=== PATIENT | female | born 1985 | race Caucasian/White ===

== ENCOUNTER 2020-08-21 01:10 | Inpatient (IN) | payer OTHER ==
[2020-08-21 03:56] LABS: BASO % 0.5 % (0-2.0); EOS % 0.3 % (0-4.5); HEMATOCRIT 35.6 % (32.4-45.2); HEMOGLOBIN 11.3 GM/dL (10.7-15.3); LYMPH % 18.7 % (8-40); MCH 27.4 pg (25.7-33.7); MCHC 31.9 g/dl (32.0-36.0); MEAN PLT VOLUME 10.8 fl (7.5-11.1); MONO % 7.4 % (3.8-10.2); NEUT % 73.1 % (42.8-82.8); PLATELET COUNT 163 K/MM3 (134-434); RBC 4.14 M/mm3 (3.60-5.2); RDW 15.7 % (11.6-15.6); WHITE BLOOD COUNT 8.1 K/mm3 (4.0-10.0)
--- NOTE | 2020-08-21 04:03 | HP ---
Past Medical History - Primary Care Physician PCP:: Jose Francisco Quintero E - Admission Chief Complaint: ctx and PROM History of Present Illness: Uneventful . Second baby, scheduled for repeat c/section in2 weeks. Admitted w ROM and contractions. Clear AF. In pain. Wants c/section. History Source: Patient, Caregiver Limitations to Obtaining History: No Limitations - Past Medical History REGULATORY SPECIALIST: No: Alzheimer's, CVA, Dementia, Migraine, Multiple Sclerosis, Peripheral Neuropathy, Parkinson's, Seizure, Syncope, TIA, Vertigo, Other Cardiovascular: No: AFIB, Aneurysm, Aortic Insufficiency, Aortic Stenosis, CAD, CHF, Deep Vein Thrombosis, HTN, Hyperlipdemia, ND, Mitral Insufficiency, Mitral Stenosis, Murmur, Pulmonary Hypertension, Other Pulmonary: No: Asthma, Bronchitis, Cancer, COPD, O2 Dependent, Pneumonia, Previously Intubated, Pulmonary Embolus, Pulmonary Fibrosis, Sleep Apnea, Other Gastrointestinal: No: Ascites, Cancer, Constipation, Crohn's Disease, Diverticulitis, Diverticulosis, Esophageal Varices, Gastritis, GERD, GI Bleed, Hemorrhoids, Hiatal Hernia, Inflamatory Bowel Disease, Irritable Bowel Disease, Pancreatitis, Peptic Ulcer Disease, Ulcerative Colitis, Other Hepatobiliary: No: Cirrhosis, Cholelithiasis, Cholecystitis, Choledocholithiasi s, Hepatitis A, Hepatitis B, Hepatitis C, Other Renal/: No: Renal Failure, Renal Inusuff, BPH, Cancer, Hematuria, Hemodialysis, Neurogenic Bladder, Renal Calculi, UTI, Other Reproductive: No: Ectopic , Endometriosis, Fibroids, PID, Polycystic Ovary Syndrome, Postmenopausal, Other ...: 3 ...Para: 2 ...Term: 2 ...: 0 ...Spon : 0 ...Induced : 0 ...Living Children: 2 ... Weeks Gestation by Dates: 36.5 ...EDC by Dates: 09/12/20 Heme/Onc: No: Anemia, B12 Deficiency, Bleeding Disorder, Cancer, Current Chemotherapy, Current Radiation Therapy, Hemochromatosis, Hypercoaguable State, Myeloproliferative Synd, Sickle Cell Disease, Sickle Cell Trait, Thrombocytopen ia, Other Infectious Disease: No: AIDS, C-Diff, Herpes Zoster, HIV, MRSA, STD's, Tuberculosis, VREF, Other Psych: No: Addictions, Anxiety, Bipolar, Depression, Panic, Psychosis, Schizophrenia, Other Musculoskeletal: No: Bursitis, Chronic low back pain, Hemiparesis, Hemiplegia, Osteoarthritis, Paraplegia, Other Rheumatology: No: Fibromyalgia, Gout, Lupus, Rheumatoid Arthritis, Sarcoidosis, Vasculitis, Other ENT: No: Allergic Rhinitis, Sinusitis, Other Endocrine: No: Rafy's Disease, Jerry's Disease, Diabetes Insipidus, Diabetes Mellitus, Hyperparathyroidism, Hyperthyroidism, Hypothyroidism, Osteopenia, SIADH, Other Dermatology: No: Basal Cell, Cellulitis, Eczema, Melanoma, Psoriasis, Squamous Cell, Other - Past Surgical History Past Surgical History: No: None, AAA Repair, AICD, Amputation, Appendectomy, Arthrosocopy, AV Fistula/Graft, Bariatric Surgery, Breast Biopsy, Bypass, CABG, Carotid Endarterectomy, Cataract Removal, Cholecystectomy, Colectomy, Colonoscopy, Colostomy, Craniotomy, , Cystectomy, Hernia Repair, Hysterectomy, Ileal Conduit, Ileosotomy, Joint Replacement, Kidney Transplant, Laminectomy, Liver Transplant, Mastectomy, Nephrectomy, Oopherectomy, Orchiectomy, Permanent Pacemaker, Prostatectomy, Splenectomy, Stent, Thoracotomy, TURP, Tonsillectomy, Tubal Ligation, Upper Endoscopy, Valve Replacement, Vasectomy, Vein Stripping/Ligation Hx Myomectomy: No Hx Transabdominal Cerclage: No Additional Surgical History: c/section Family Medical History Family History: Unremarkable Review of Systems - Review of Systems Constitutional: reports: No Symptoms Eyes: reports: No Symptoms HENT: reports: No Symptoms Neck: reports: No Symptoms Cardiovascular: reports: No Symptoms Respiratory: reports: No Symptoms Gastrointestinal: reports: No Symptoms Genitourinary: reports: No Symptoms Breasts: reports: No Symptoms Reported Musculoskeletal: reports: No Symptoms Integumentary: reports: No Symptoms Neurological: reports: No Symptoms Endocrine: reports: No Symptoms Hematology/Lymphatic: reports: No Symptoms Psychiatric: reports: No Symptoms Physical Exam - Maternity Vital Signs: Vital Signs Temperature 98.0 F 08/21/20 02:30 Pulse Rate 90 08/21/20 02:30 Respiratory Rate 18 08/21/20 02:30 Blood Pressure 131/87 08/21/20 02:30 O2 Sat by Pulse Oximetry (%) Constitutional: Yes: Well Nourished, No Distress, Calm Eyes: Yes: WNL, Conjunctiva Clear, EOM Intact HENT: Yes: WNL, Atraumatic, Normocephalic Neck: Yes: WNL, Supple, Trachea Midline Cardiovascular: Yes: WNL, Regular Rate and Rhythm Breast(s): Yes: WNL - Abdominal Exam/OB Fundal Height: 36 Number of Fetuses: Single Presentation: Vertex Contractions: Yes Regularity: Regular Intensity: Mild/Mod Monitor Mode: External Heart Rate (range): 145 Heart Rate Location: [facility] Category: I Accelerations: Uniform Decelerations: None - Vaginal Exam/OB Vaginal Bleeding: No Dilatation (cm): 2 Effacement (%): 50 Amniotic Membrane Status: Leaking Nitrazine Test: Positive Amniotic Fluid: Yes: Clear Presentation: Vertex/Position Station: -2 - Physical Exam Musculoskeletal: Yes: WNL Extremities: Yes: WNL Psychiatric: No: WNL, Alert, Oriented, Agitated, Suicidal Ideation, Other Problem List - Problems (1) with 36 completed weeks gestation Code(s): Z3A.36 - 36 WEEKS GESTATION OF (2) PROM with onset of labor within 24 hours of rupture Code(s): O42.00 - POOJA ROM, ONSET LABOR W/N 24 HR OF RUPT, UNSP WEEKS OF GEST (3) Previous section Code(s): Z98.891 - HISTORY OF UTERINE SCAR FROM PREVIOUS SURGERY Assessment/Plan PROM in labor. Desires repeat c/section. No . Pt. understands all risks and poss. complications and consents to the surgery.
[2020-08-21 04:07] LABS: INR 0.91 (0.83-1.09); PROTHROMBIN TIME (PATIENT) 11.1 SEC (9.7-13.0)
[2020-08-21] MEDS ORDERED: CITRIC ACID/SODIUM CITRATE 30 ML UNIT-DOSE CUP PO ONE (04:09)
[2020-08-21 04:10] LABS: ACTIVATED PTT 25.1 SECONDS (25.2-36.5)
[2020-08-21 04:11] LABS: POTASSIUM 4.2 mmol/L (3.5-5.1)
[2020-08-21 04:13] LABS: CALCIUM 9.1 mg/dL (8.5-10.1)
[2020-08-21 04:14] LABS: ALBUMIN 3.2 g/dl (3.4-5.0); BLOOD UREA NITROGEN 7.6 mg/dL (7-18)
[2020-08-21 04:17] LABS: CREATININE 0.5 mg/dL (0.55-1.3)
[2020-08-21 04:18] LABS: BILIRUBIN,TOTAL 0.2 mg/dL (0.2-1); TOT PROT 6.9 g/dl (6.4-8.2)
[2020-08-21 04:28] VITALS: BMI 28.3
[2020-08-21] MEDS ORDERED: ONDANSETRON 4 MG/2 ML VIAL IVPUSH PRN (04:34)
[2020-08-21] MEDS ORDERED: morphine SULFATE/PF 0.5 MG/ML (2cc Syringe - QUVA) ONE (04:43)
[2020-08-21] MEDS ORDERED: LIGASURE IMPACT TP ONE (04:46)
[2020-08-21] MEDS: OXYTOCIN 20 UNITS in 0.9% NS 20 UNIT/1,000 ML INFUS.BAG IV SCH ×2 (05:20→10:51)
[2020-08-21] MEDS ORDERED: OXYTOCIN 10 UNITS/ML VIAL ONE ×4 (06:05→06:06)
[2020-08-21] MEDS ORDERED: ceFAZolin SODIUM 1 GM VIAL ONE ×2 (06:05)
[2020-08-21] MEDS ORDERED: ACETAMINOPHEN 1000 MG/100 ML VIAL (NON FORMULARY) IVPB PRN (06:21)
[2020-08-21] MEDS ORDERED: IBUPROFEN 600 MG TABLET (FP) PO PRN (06:21)
[2020-08-21] MEDS ORDERED: ONDANSETRON 4 MG/2 ML VIAL IVPB PRN (06:21)
[2020-08-21] MEDS ORDERED: oxyCODONE HCL 5 MG TABLET PO PRN (06:21)
[2020-08-21] MEDS ORDERED: ACETAMINOPHEN 325 MG TABLET (FP) PO PRN (06:21)
[2020-08-21] MEDS ORDERED: SENNOSIDES/DOCUSATE COMBO (SENNA PLUS) TABLET (UD) PO PRN (06:21)
--- NOTE | 2020-08-21 06:21 | PN ---
Delivery - Delivery Section: Repeat (Excision of keloid. Lance. salpingectomy.), Low Flap Transverse Type of Anesthesia: Spinal EBL (cc): 600 Delivery, Single - Condition of Infant Gender: Male - 1 Minute Total Score: 9 5 Minutes Total Score: 9 - Feeding Plan Initial Plan: Elected not to breastfeed exclusively throughout hospitalization Remarks - Remarks Remarks: Uneventful repeat c/section. Removal of keloid. Lance.salpingectomy.
[2020-08-21] MEDS ORDERED: OXYTOCIN 20 UNITS in 0.9% NS 20 UNIT/1,000 ML INFUS.BAG IV ONE (07:19)
[2020-08-21] MEDS ORDERED: IBUPROFEN 800 MG/8 ML IJ IVPB ONE (07:39)
[2020-08-21] MEDS: IBUPROFEN 800 MG/8 ML IJ IVPB PRN ×2 (07:45→17:42)
[2020-08-21] MEDS: CEFAZOLIN 2 GM/D5W 2 GM/50 ML ML IVPB SCH ×2 (10:49→18:44)
--- NOTE | 2020-08-21 18:30 | PN ---
Progress Note (short form) - Note Progress Note: Doing great postop. OOB. Good pain control PE is OK. Wound clean, dressing changed. No CVA, extrem T. Problem List - Problems (1) with 36 completed weeks gestation Code(s): Z3A.36 - 36 WEEKS GESTATION OF (2) PROM with onset of labor within 24 hours of rupture Code(s): O42.00 - POOJA ROM, ONSET LABOR W/N 24 HR OF RUPT, UNSP WEEKS OF GEST (3) Previous section Code(s): Z98.891 - HISTORY OF UTERINE SCAR FROM PREVIOUS SURGERY
[2020-08-21] MEDS: SIMETHICONE 80 MG TAB.CHEW (FP) PO PRN (18:55)
--- NOTE | 2020-08-21 20:06 | OP ---
DATE OF OPERATION: 08/21/2020 PREOPERATIVE DIAGNOSES: 1. Intrauterine , 36 weeks 5 days. 2. Previous section. 3. Premature rupture of membranes. 4. Active labor. 5. Desire for sterility. POSTOPERATIVE DIAGNOSES: 1. Intrauterine , 36 weeks 5 days. 2. Previous section. 3. Premature rupture of membranes. 4. Active labor. 5. Desire for sterility. 6. Keloid. PROCEDURE: 1. Repeat low-segment transverse section, resection of the keloid. 2. Bilateral salpingectomy for the purpose of sterilization. SURGEON: Jesse Garcia MD BREW HOUSE SUPERVISOR: NENITA Parham ANESTHESIA: Spinal. ANESTHESIOLOGIST: Patrick Santamaria MD EXPERIENTIAL THERAPIST: Robb Avila MD PROCEDURE AND FINDINGS: Under excellent spinal block in dorsal supine position with left lateral tilt, patient was prepped and draped in the normal fashion. Old thick keloid was excised in a wedge-like fashion. Incision was then carried out transversely through the subcutaneous tissue and fascia. Rectus muscles were dissected off the fascia and divided in the midline. Peritoneum was entered sharply in the upper part of the incision and extended vertically. Term uterus with normal adnexa was noted. Bladder flap was incised and peeled off the lower uterine segment. Hysterotomy was performed transversely and extended with the bandage scissors. Male infant was delivered, cried and breathed spontaneously. The baby was suctioned, cord was divided with delay, and neonatology team took over. Cord blood sample was obtained. Placenta was removed from the uterus, and uterine cavity was cleaned. The internal os was open. Hysterotomy was closed with continuous running Biosyn 0 interlocking suture. Hemostasis was attempted then and before closure of the abdomen. One mattress Biosyn 0 suture was required for a slightly oozing point in the incision. After that, hemostasis was excellent. Right tube was identified and elevated. Using LigaSure device, mesosalpinx was divided and tube was from the uterus. Hemostasis was secure. The same was repeated on the left side. Both specimens were sent separately for identification. With uterus placed anatomically in the pelvis, thorough lavage was carried out. Hemostasis was attended to and was excellent. Sponge, needle, and instrument count was correct. Abdomen was closed in layers, with peritoneum closed with Biosyn 2-0, fascia with continuous running Vicryl 1 suture, subcutaneous tissue with interrupted 3-0 Biosyn, and skin was closed with 4-0 Vicryl continuous running subcuticular suture using the Jesse needle. Steri-Strips were applied on the incision. Sterile dressing was placed and held with a binder. Urine was ample and clean in the Perla catheter bag. Blood loss was 600 mL. There was no complication with the surgery. Patient withstood the procedure very well and was transferred to maternity PACU stable and awake. JESSE GARCIA MD [id number]
[2020-08-21] MEDS: ACETAMINOPHEN 325 MG TABLET (FP) PO PRN (21:18)
[2020-08-22] MEDS: IBUPROFEN 600 MG TABLET (FP) PO PRN ×3 (05:01→20:22)
[2020-08-22] MEDS: ACETAMINOPHEN 325 MG TABLET (FP) PO PRN ×3 (05:02→20:21)
[2020-08-22] MEDS: SIMETHICONE 80 MG TAB.CHEW (FP) PO PRN ×3 (05:03→20:24)
[2020-08-22] MEDS ORDERED: BISACODYL 10 MG SUPP.RECT RC PRN (06:21)
[2020-08-22 08:41] LABS: BASO % 0.5 % (0-2.0); EOS % 0.7 % (0-4.5); HEMATOCRIT 29.8 % (32.4-45.2); HEMOGLOBIN 9.7 GM/dL (10.7-15.3); MCHC 32.3 g/dl (32.0-36.0); MEAN CELL VOLUME 86.6 fl (80-96); MEAN PLT VOLUME 10.6 fl (7.5-11.1); MONO % 5.8 % (3.8-10.2); PLATELET COUNT 138 K/MM3 (134-434); RBC 3.45 M/mm3 (3.60-5.2); WHITE BLOOD COUNT 10.6 K/mm3 (4.0-10.0)
--- NOTE | 2020-08-22 08:41 | PN ---
Progress Note (short form) - Note Progress Note: 35F s/p C/S under spinal DM. No new c/o. Vital Signs Temp 97.9 F 08/22/20 06:00 Pulse 68 08/22/20 06:00 Resp 18 08/22/20 06:00 BP 108/72 08/22/20 06:00 Pulse Ox 98 08/21/20 22:00 Intake & Output 08/21/20 08/21/20 08/22/20 11:59 23:59 11:59 Intake Total 950 1900 Output Total 1550 2350 600 Balance -600 -450 -600 Weight 150 lb Intake: IV 850 1200 NORMAL SALINE+20 UNITS 850 1200 OXYTOCIN - 20 unit In 1, 000 ml @ 125 mls/hr IV ASDIR SINGH Rx#:[id number] IVPB 100 350 Oral 350 Output: Urine 1550 2350 600 Perla 1550 1650 Void 700 600 Other: Voiding Method Indwelling Catheter Toilet Bowel Movement No No Height 5 ft 1 in Body Mass Index (BMI) 28.3 Weight 5 lb 9 oz Length 17 in CBC, BMP 08/21/20 03:30 sitting, NAD - s/p spinal anesthesia. No anesthetic complications.
[2020-08-22] MEDS ORDERED: FLU VACCINE (FLULAVAL) PF 60 MCG/0.5 ML SYRINGE 2020-2021 IM ONE (10:00)
--- NOTE | 2020-08-22 11:54 | PN ---
Progress Note (short form) - Note Progress Note: Surgery: Pt tolerating a diet. Voiding without difficulty. Scant vaginal bleeding. Passed a small amount of flatus had a bm Vital Signs Period Temp Pulse Resp BP Sys/Zafar Pulse Ox Last 24 Hr 97.9 F-98.6 F 68-90 18-20 108-121/72-79 96-100 GEN: A&0x3, NAD ABD: soft, distended, inc tenderness. Inc c/d/i. Small amount of serous drainage medial aspect. Suprapubic edema. No erythema LE: no calf tenderness or swelling noted b/l CBC, BMP 08/22/20 08:06 08/21/20 03:30 A/p: 35 yo female s/p c section, POD#1 Continue OOB to chair/ambulate oral tylenol/motrin, oxycodone as needed stool softners, prn Diet as tolerated Plan for discharge in the am D/w Dr. Quintero
[2020-08-22 22:16] VITALS: BP 120/69
[2020-08-23] MEDS: ACETAMINOPHEN 325 MG TABLET (FP) PO PRN ×2 (01:23→06:27)
[2020-08-23] MEDS: IBUPROFEN 600 MG TABLET (FP) PO PRN ×3 (01:23→11:06)
[2020-08-23] MEDS: SIMETHICONE 80 MG TAB.CHEW (FP) PO PRN ×2 (01:30→11:05)
[2020-08-23 10:55] VITALS: PULSE 80; TEMP 97.6
--- NOTE | 2020-08-23 11:16 | DS ---
"Physical Exam-TIME STUDY TECHNICIAN Vital Signs: Vital Signs Temperature 97.6 F 08/23/20 10:00 Pulse Rate 80 08/23/20 10:00 Respiratory Rate 20 08/23/20 10:00 Blood Pressure 120/69 08/22/20 22:00 O2 Sat by Pulse Oximetry (%) 96 08/23/20 10:00 Constitutional: Yes: Well Nourished, No Distress, Calm Eyes: Yes: WNL, Conjunctiva Clear, EOM Intact HENT: Yes: WNL, Atraumatic, Normocephalic Neck: Yes: WNL, Supple, Trachea Midline Cardiovascular: Yes: WNL, Regular Rate and Rhythm Respiratory: Yes: WNL, Regular, CTA Bilaterally Gastrointestinal: Yes: WNL ...Rectal Exam: Yes: WNL Renal/: Yes: WNL ....Post : Yes: Uterus firm, Uterus non-tender Breast(s): Yes: WNL Musculoskeletal: Yes: WNL Extremities: Yes: WNL Integumentary: Yes: WNL Wound/Incision: Yes: Clean/Dry, Well Approximated Neurological: Yes: WNL, Alert, Oriented ...Motor Strength: WNL Psychiatric: Yes: WNL, Alert, Oriented Labs: CBC, BMP 08/22/20 08:06 08/21/20 03:30 Delivery - Delivery Section: Repeat (Excision of keloid. Lance. salpingectomy.), Low Flap Transverse Type of Anesthesia: Spinal Episiotomy/Laceration: None EBL (cc): 600 Delivery, Single - Stages of Labor Date 1st Stage Initiatied: 08/20/20 Time 1st Stage Initiated: 21:47 Date 2nd Stage Initiated: 08/21/20 Time 2nd Stage Initiated: 22:05 Date of Delivery: 08/21/20 Time of Delivery: 05:14 Time Placenta Delivered: 05:16 Placenta: Yes: Manual Removal, Normal Configuration (PROM, labor.) - Condition of Infant Sales Architect/City Superintendent Present: Yes Name: Robb Avila Infant Gender: Male Weight: 5 lb 9 oz Position: Left, OA Total Hours ROM (Hrs/Mins): 7 hrs and 29 mins - 1 Minute Total Score: 9 5 Minutes Total Score: 9 - Reading Feeding Plan Initial Plan: Elected not to breastfeed exclusively throughout hospitalization Remarks - Remarks Remarks: Uneventful repeat c/section. Removal of keloid. Lance.salpingectomy. Discharge Summary Problems reviewed: Yes Reason For Visit: LABOR ADMIT C/SECTION Current Active Problems PROM with onset of labor within 24 hours of rupture (Acute) with 36 completed weeks gestation (Acute) Previous section (Acute) Procedures: Principal: Rep. c/section. BNil./ salpingectomy. FRemoval of keloid. Hospital Course: uneventful - Instructions Diet, Activity, Other Instructions: Discharge Instructions: Wound care You have steri-strips over your incision. Leave these in place. They will peel off in the next 7 to 10 days. Do Not peel them off. You may shower after surgery. If there are tapes present on the skin, they can get wet. When showering, allow soap and water to run over the incision, do not scrub the incision. Pat dry well after showering. You may continue to use the abdominal binder for comfort. When coughing, sneezing or getting up it is helpful to hold a pillow against the incision for comfort. Diet There are no dietary restrictions. Eat healthy, high-fiber foods. Drink 6 to 8 glasses of liquid each day. This will assist in keeping your bowels are regular. You may want to take an over the counter stool softener such as DulcoEase as constipation is a common side effect of narcotic pain medications. Activity: No heavy lifting, exercise or strenuous activity until cleared by your doctor. Do not lift anything heavier than the baby until otherwise cleared by your doctor. Dont try to take care of anyone other than the baby and yourself. Get lots of rest, take naps in throughout the day. Increase your activity level bit by bit. We recommend postsurgical breathing and coughing exercises to help keep your lungs clear. You may take the incentive spirometer home with you and continue using it. Do not drive until cleared by your doctor. No sexual activity until cleared by your doctor. The best exercise is walking. Small amounts done frequently are best. It is best to stay mobile to avoid development of blood clots in your legs. Medications: Pain management You may take Tylenol (Acetaminophen) or Ibuprofen (for example, Motrin, Advil etc) for mild pain. Any pain prescription medication ordered should be taken as prescribed for moderate to severe pain. Please take as directed. If the prescribed dosage is not controlling your pain, please contact Dr Quintero. Do not drive, drink alcohol or operate heavy machinery while taking narcotic pain medications. You may Acetaminophen and Ibuprofen alternating. For example, you can take Acetaminophen at 10AM followed by Ibuprofen at 1pm, followed by Acetaminophen again at 4pm. We recommend keeping track of the dosage and time you take each to ensure you do not exceed the irrigation installation specialist's recommended daily dosage. Take Ibuprofen with food, Acetaminophen may be taken on an empty stomach. Do not exceed 3g (3000mg) of Acetaminophen in 24 hours. Do not exceed 2400mg Ibuprofen in 24 hours. Follow up: Please call the office for a follow up appointment in Call your doctor immediately if you have: Fever of 100.4F (38C) or higher Redness, pain, or drainage at your incision site Bleeding that requires a new sanitary pad every hour Severe pain in the abdomen Pain or urgency with urination Foul odor from vaginal discharge Trouble urinating or emptying your bladder No bowel movement within 1 week after the of your baby Swollen, red, painful area in the leg Appearance of rash or hives Sore, red, painful area on the breasts that may come with flu-like symptoms Feelings of anxiety, panic, and/or depression This report was requested by: Vivien Reinoso | Reference #: [id number] Disposition: HOME - Home Medications Comprehensive Discharge Medication List: Ambulatory Orders Pnv No.95/Ferrous Fum/Folic AC [ Caplet] 1 each PO DAILY 08/21/20 oxyCODONE HCL [Roxicodone -] 5 mg PO Q8H PRN #9 tablet MDD 3 08/22/20 Prescription Drug Monitoring Program (I-STOP) results: I-STOP reviewed and no issues identified"
--- NOTE | 2020-08-25 15:59 | PATH ---
Surgical Pathology Report Patient Name: ERNESTO KNOWLES [facility]. Rec. #: [id number] /Age/Gender: 1985 (Age: 35) / F Account: [id number] Location: [facility] OBS/SCHOOL ATTENDANCE SECRETARY Taken: 08/21/2020 Received: 08/21/2020 Reported: 08/25/2020 Physicians: Jose Francisco Quintero MD Specimen(s) Received A: PLACENTA B: RIGHT FALLOPIAN TUBE C: LEFT FALLOPIAN TUBE D: SCAR TISSUE Clinical History 36.5, repeat Final Diagnosis A. PLACENTA: THIRD TRIMESTER PLACENTA WITH FOCALLY INCREASED PERIVILLOUS FIBRIN DEPOSITION. TRIVASCULAR CORD. MEMBRANES WITH NO DIAGNOSTIC ABNORMALITIES. B. RIGHT FALLOPIAN TUBE, SALPINGECTOMY: PORTION OF FALLOPIAN TUBE WITH ENDOSALPINGIOSIS. COMPLETE CROSS SECTION OF THE FALLOPIAN TUBE IDENTIFIED. C. LEFT FALLOPIAN TUBE, SALPINGECTOMY: PORTION OF FALLOPIAN TUBE WITH NO SIGNIFICANT PATHOLOGIC CHANGE. COMPLETE CROSS SECTION OF THE FALLOPIAN TUBE IDENTIFIED. D. SCAR TISSUE, EXCISION: PORTION OF SKIN WITH SCAR. Electronically Signed Wil Mcneill M.D. Gross Description A. The specimen is received fresh labeled placenta and is a 396 gram, 14.0 x 12.0 x 3.4 cm. placenta with attached membranes and umbilical cord. The attached membranes are luo, translucent with focal opacities and insert marginally. The umbilical cord measures 32 cm. in length and averages 1.1 cm. in diameter. The cord inserts eccentrically, 2 cm. to the nearest margin. No true knots or strictures are identified. Cut surface of the umbilical cord reveals 3 vessels. The surface is armstrong-blue with minimal fibrin deposition and appropriate caliber vessels. The maternal surface is red-brown with focal defects. Sectioning reveals red-brown, spongy parenchyma. No lesions are identified. Die Stamper sections are submitted in three cassettes as follows: 1- membrane rolls and umbilical cord; 2-3- full thickness sections of placenta. B. Received in formalin labeled "right fallopian tube," is a 5.5 cm in length fimbriated fallopian tube. The outer surface is armstrong purple and smooth. Sectioning reveals unremarkable lumen. Die Stamper sections are submitted in 2 cassettes as follows: 1-fimbria; 2-cross sections of fallopian tube. C. Received in formalin labeled "left fallopian tube," is a 6 cm in length fimbriated fallopian tube. The outer surface is june purple and smooth. Sectioning reveals an unremarkable lumen. Die Stamper sections are submitted in 2 cassettes as follows: 1-fimbria; 2-cross sections of fallopian tube. D. Received in formalin labeled "scar tissue," is a 9.5 x 0.7 cm luo, elliptical, unoriented portion of skin excised to depth of 2.0 cm. The epidermal surface displays a well healed scar. Die Stamper sections are submitted in one cassette. 08/22/2020 [facility]08/22/2020
== END 2020-08-23 11:50 | disposition home or self-care (01) | DRG 540 ==
LOC: JDEL 01:10 → JLDR 03:08 → J3W 08:48
PROVIDERS: ADMIT Specialist; ATTEND Specialist
PROC: 10D00Z1 Extraction of Products of Conception, Low, Open Approach (ICD-10-PCS; principal; 2020-08-21)
PROC: 0UT70ZZ Resection of Bilateral Fallopian Tubes, Open Approach (ICD-10-PCS; 2020-08-21)
DX: O34.218 Maternal care for other type scar from previous cesarean delivery (principal); O60.14X0 Preterm labor third trimester with preterm delivery third trimester, not applicable or unspecified; Z3A.36 36 weeks gestation of pregnancy; Z37.0 Single live birth; Z30.2 Encounter for sterilization; Z86.19 Personal history of other infectious and parasitic diseases
CPT/HCPCS: 36415; 59025; 80053; 85025; 85610; 85730; 86762; 86780; 86850; 86900; 86901; 87340; 87389; 88302-TC; 88304-TC; 88307-TC; C9803; J0131; Q2036; U0003